=== PATIENT | male | born 1955 | race African-American/Black ===

== ENCOUNTER 2022-12-31 21:39 | Inpatient (IN) | payer OTHER, SELFPAY ==
[2022-12-31] MEDS ORDERED: Dextrose 5% in Water 1,000 ML IV PRN (22:45)
[2022-12-31] MEDS ORDERED: HumaLOG 300 UNITS/3 ML VIAL SC PRN (22:45)
[2022-12-31] MEDS ORDERED: Glucagon 1 MG/ML KIT IM PRN (22:45)
[2022-12-31] MEDS ORDERED: Dextrose 50% Abboject 50 ML SYRINGE SLOW IVP PRN (22:45)
[2022-12-31] MEDS ORDERED: Ondansetron PF 4 MG/2 ML Vial IVP PRN (22:45)
[2022-12-31] MEDS ORDERED: Ondansetron ODT 4 MG TAB PO PRN (22:45)
[2022-12-31] MEDS ORDERED: methylPREDNISolone Sod Succ/PF 125 MG/2 ML VIAL IVP SCH (23:00)
[2022-12-31 23:01] VITALS: BMI 33.7
[2023-01-01 04:24] LABS: #Monocytes 0.1 thou/uL (0.11-0.59); #Neutrophils 10.3 thou/uL (1.40-6.50); %Basophils 0.2 % (0.0-1.0); %Lymphocytes 6.6 % (21.0-51.0); %Monocytes 0.7 % (0.0-10.0); %Neutrophils 92.1 % (42.0-75.0); Hematocrit 37.8 % (42.0-52.0); Hemoglobin 12.4 g/dL (14.0-18.0); Mean Corpuscular HGB CONC 32.8 g/dL (32.0-36.0); Mean Corpuscular Volume 91.5 fl (78.0-98.0); Mean Platelet Volume 10.1 fL (7.4-10.4); Platelet Count 266 10x3/uL (130-400); RBC Distribution Width 12.6 % (11.5-14.5); Red Blood Cell (RBC) Count 4.13 mill/uL (4.70-6.10); White Blood Cell (WBC) Count 11.2 10x3/uL (4.8-10.8)
[2023-01-01 04:34] LABS: Hemoglobin A1c 6.3 % (4.0-6.0)
[2023-01-01 04:57] LABS: ALT (SGPT) 34 U/L (8-55); AST (SGOT) 35 U/L (5-34); Alkaline Phosphatase 59 U/L (40-110); Anion Gap 9 mmol/L (10-20); BUN (Urea Nitrogen) 11 mg/dL (8.4-25.7); Bilirubin, Total 0.3 mg/dL (0.2-1.2); Calc. Creatinine Clearance 92 mL/min (70-130); Calcium 8.9 mg/dL (7.8-10.44); Carbon Dioxide 22 mmol/L (23-31); Chloride 110 mmol/L (98-107); Estimated GFR 68; Globulin 2.9 g/dL (2.4-3.5); Glucose 171 mg/dL (80-115); Potassium 4.2 mmol/L (3.5-5.1); Protein, Total 6.9 g/dL (5.8-8.1); Sodium 137 mmol/L (136-145)
[2023-01-01 05:01] LABS: Phosphorus 1.1 mg/dL (2.3-4.7)
[2023-01-01] MEDS ORDERED: Electrolyte Replacement Protocol 1 EACH FS PRN (05:30)
[2023-01-01] MEDS ORDERED: Magnesium 2 GM/50 ML(in water) 2 GM in Premix Bag 1 BAG IVPB SCH (06:00)
[2023-01-01] MEDS: PHOS-NAK 1 PKT PACK PO SCH ×3 (06:32→16:52)
[2023-01-01] MEDS: HumaLOG 300 UNITS/3 ML VIAL SC PRN (06:38)
[2023-01-01] MEDS ORDERED: Atorvastatin Calcium 10 MG TAB PO SCH (09:00)
[2023-01-01] MEDS: Spironolactone 25 MG TAB PO SCH (09:53)
[2023-01-01] MEDS: Amlodipine 10 MG TAB PO SCH (09:54)
[2023-01-01] MEDS: Losartan 25 MG TAB PO SCH (09:54)
[2023-01-01] MEDS ORDERED: OCTAGAM 10% (10 GM/100 ML VIAL) IVPB SCH ×2 (10:45)
[2023-01-01] MEDS ORDERED: ADMIXTURE FEE IVPB SCH (12:00)
[2023-01-01] MEDS ORDERED: IMMUNE GLOBULIN IVPB SCH (12:00)
[2023-01-01 16:23] LABS: ANA Symphony (Qualitative) Negative (Negative); ANA Symphony (Quantitative) 0.2 Ratio (< 0.7 Negative); dsDNA IgG Antibody Less than 0.6 IU/mL (<10 Negative)
[2023-01-01] MEDS: Privigen 40 GM, Privigen 10 GM in Admixture Fee 1 EACH IVPB SCH (16:53)
[2023-01-01] MEDS: Insulin Glargine 30 UNITS/0.3 ML VIAL SC SCH (20:43)
[2023-01-01] MEDS ORDERED: Insulin Glargine 30 UNITS/0.3 ML VIAL SC SCH (21:00)
[2023-01-02] MEDS: PHOS-NAK 1 PKT PACK PO SCH (03:30)
[2023-01-02 05:02] LABS: #Monocytes 0.8 thou/uL (0.11-0.59); #Neutrophils 12.5 thou/uL (1.40-6.50); %Basophils 0.3 % (0.0-1.0); %Eosinophils 0.2 % (0.0-10.0); %Lymphocytes 9.7 % (21.0-51.0); %Monocytes 5.1 % (0.0-10.0); %Neutrophils 84.2 % (42.0-75.0); Hemoglobin 11.4 g/dL (14.0-18.0); Mean Corpuscular HGB CONC 33.5 g/dL (32.0-36.0); Mean Corpuscular Hemoglobin 30.4 pg (27.0-31.0); Mean Corpuscular Volume 90.7 fl (78.0-98.0); Mean Platelet Volume 10.2 fL (7.4-10.4); Platelet Count 227 10x3/uL (130-400); RBC Distribution Width 12.7 % (11.5-14.5); Red Blood Cell (RBC) Count 3.75 mill/uL (4.70-6.10); White Blood Cell (WBC) Count 14.9 10x3/uL (4.8-10.8)
[2023-01-02 06:52] LABS: Anion Gap 10 mmol/L (10-20); BUN (Urea Nitrogen) 16 mg/dL (8.4-25.7); Calc. Creatinine Clearance 92 mL/min (70-130); Calcium 8.3 mg/dL (7.8-10.44); Carbon Dioxide 23 mmol/L (23-31); Chloride 105 mmol/L (98-107); Estimated GFR 68; Glucose 92 mg/dL (80-115); Phosphorus 3.3 mg/dL (2.3-4.7); Sodium 134 mmol/L (136-145)
[2023-01-02] MEDS ORDERED: Magnesium 2 GM/50 ML(in water) 2 GM in Premix Bag 1 BAG IVPB SCH (08:00)
[2023-01-02] MEDS ORDERED: Dexamethasone 4 mg/ml Vial SLOW IVP SCH (09:15)
[2023-01-02] MEDS: Amlodipine 10 MG TAB PO SCH (09:58)
[2023-01-02] MEDS: Losartan 25 MG TAB PO SCH (09:58)
[2023-01-02] MEDS: Spironolactone 25 MG TAB PO SCH (09:58)
[2023-01-02] MEDS: Privigen 40 GM, Privigen 10 GM in Admixture Fee 1 EACH IVPB SCH (14:06)
[2023-01-02] MEDS: Dexamethasone 4 mg/ml Vial SLOW IVP SCH ×2 (16:07→21:05)
[2023-01-02] MEDS: Insulin Glargine 30 UNITS/0.3 ML VIAL SC SCH (21:05)
[2023-01-03] MEDS: Dexamethasone 4 mg/ml Vial SLOW IVP SCH ×4 (03:34→21:15)
[2023-01-03 04:36] LABS: #Monocytes 0.2 thou/uL (0.11-0.59); %Lymphocytes 6.9 % (21.0-51.0); %Monocytes 1.4 % (0.0-10.0); Hematocrit 37.7 % (42.0-52.0); Hemoglobin 12.6 g/dL (14.0-18.0); Mean Corpuscular HGB CONC 33.4 g/dL (32.0-36.0); Mean Corpuscular Hemoglobin 30.3 pg (27.0-31.0); Mean Corpuscular Volume 90.6 fl (78.0-98.0); Mean Platelet Volume 9.9 fL (7.4-10.4); Platelet Count 252 10x3/uL (130-400); RBC Distribution Width 12.5 % (11.5-14.5); Red Blood Cell (RBC) Count 4.16 mill/uL (4.70-6.10); White Blood Cell (WBC) Count 12.1 10x3/uL (4.8-10.8)
[2023-01-03 04:57] LABS: Anion Gap 13 mmol/L (10-20); BUN (Urea Nitrogen) 19 mg/dL (8.4-25.7); Calc. Creatinine Clearance 97 mL/min (70-130); Calcium 8.5 mg/dL (7.8-10.44); Carbon Dioxide 21 mmol/L (23-31); Chloride 105 mmol/L (98-107); Estimated GFR 73; Glucose 136 mg/dL (80-115); Potassium 4.1 mmol/L (3.5-5.1); Sodium 135 mmol/L (136-145)
[2023-01-03] MEDS: Spironolactone 25 MG TAB PO SCH (08:27)
[2023-01-03] MEDS: Amlodipine 10 MG TAB PO SCH (08:27)
[2023-01-03] MEDS: Losartan 25 MG TAB PO SCH (08:28)
[2023-01-03] MEDS: HumaLOG 300 UNITS/3 ML VIAL SC PRN ×2 (14:18→18:32)
[2023-01-03] MEDS: Privigen 40 GM, Privigen 10 GM in Admixture Fee 1 EACH IVPB SCH (15:34)
[2023-01-03] MEDS: Insulin Glargine 30 UNITS/0.3 ML VIAL SC SCH (21:15)
[2023-01-04] MEDS: Dexamethasone 4 mg/ml Vial SLOW IVP SCH ×4 (02:29→20:45)
[2023-01-04 05:48] LABS: #Monocytes 0.4 thou/uL (0.11-0.59); #Neutrophils 15.5 thou/uL (1.40-6.50); %Basophils 0.1 % (0.0-1.0); %Monocytes 2.5 % (0.0-10.0); %Neutrophils 90.5 % (42.0-75.0); Hemoglobin 12.4 g/dL (14.0-18.0); Mean Corpuscular HGB CONC 33.5 g/dL (32.0-36.0); Mean Corpuscular Hemoglobin 29.8 pg (27.0-31.0); Mean Corpuscular Volume 88.9 fl (78.0-98.0); Mean Platelet Volume 10.2 fL (7.4-10.4); Platelet Count 265 10x3/uL (130-400); RBC Distribution Width 12.3 % (11.5-14.5); Red Blood Cell (RBC) Count 4.16 mill/uL (4.70-6.10); White Blood Cell (WBC) Count 17.1 10x3/uL (4.8-10.8)
[2023-01-04 06:16] LABS: Anion Gap 11 mmol/L (10-20); BUN (Urea Nitrogen) 25 mg/dL (8.4-25.7); Calc. Creatinine Clearance 94 mL/min (70-130); Calcium 8.3 mg/dL (7.8-10.44); Carbon Dioxide 21 mmol/L (23-31); Chloride 104 mmol/L (98-107); Estimated GFR 70; Glucose 146 mg/dL (80-115); Potassium 4.1 mmol/L (3.5-5.1); Sodium 132 mmol/L (136-145)
[2023-01-04] MEDS: Spironolactone 25 MG TAB PO SCH (09:19)
[2023-01-04] MEDS: Losartan 25 MG TAB PO SCH (09:19)
[2023-01-04] MEDS: Amlodipine 10 MG TAB PO SCH (09:19)
[2023-01-04] MEDS: Privigen 40 GM, Privigen 10 GM in Admixture Fee 1 EACH IVPB SCH (14:01)
[2023-01-04 14:37] LABS: Cytoplasmic (C-ANCA) <1:20 titer (Neg:<1:20); Perinuclear (P-ANCA) <1:20 titer (Neg:<1:20)
[2023-01-04] MEDS ORDERED: CEFAZOLIN 2 GM in Sodium Chloride 0.9% 100 ML IVPB SCH (18:15)
[2023-01-04] MEDS: Insulin Glargine 30 UNITS/0.3 ML VIAL SC SCH (20:45)
[2023-01-05] MEDS: Dexamethasone 4 mg/ml Vial SLOW IVP SCH ×4 (03:40→20:06)
[2023-01-05 05:19] LABS: #Monocytes 0.8 thou/uL (0.11-0.59); #Neutrophils 15.3 thou/uL (1.40-6.50); %Basophils 0.1 % (0.0-1.0); %Monocytes 4.8 % (0.0-10.0); %Neutrophils 87.7 % (42.0-75.0); Hematocrit 36.5 % (42.0-52.0); Hemoglobin 12.5 g/dL (14.0-18.0); Mean Corpuscular HGB CONC 34.2 g/dL (32.0-36.0); Mean Corpuscular Hemoglobin 30.8 pg (27.0-31.0); Mean Corpuscular Volume 89.9 fl (78.0-98.0); Mean Platelet Volume 9.8 fL (7.4-10.4); Platelet Count 260 10x3/uL (130-400); RBC Distribution Width 12.5 % (11.5-14.5); Red Blood Cell (RBC) Count 4.06 mill/uL (4.70-6.10); White Blood Cell (WBC) Count 17.4 10x3/uL (4.8-10.8)
[2023-01-05 05:48] LABS: Anion Gap 12 mmol/L (10-20); BUN (Urea Nitrogen) 28 mg/dL (8.4-25.7); Calc. Creatinine Clearance 92 mL/min (70-130); Calcium 8.1 mg/dL (7.8-10.44); Carbon Dioxide 20 mmol/L (23-31); Chloride 105 mmol/L (98-107); Estimated GFR 68; Glucose 175 mg/dL (80-115); Potassium 4.4 mmol/L (3.5-5.1); Sodium 133 mmol/L (136-145)
[2023-01-05] MEDS: Spironolactone 25 MG TAB PO SCH (07:33)
[2023-01-05] MEDS: Amlodipine 10 MG TAB PO SCH (07:33)
[2023-01-05] MEDS: Losartan 25 MG TAB PO SCH (07:39)
[2023-01-05] MEDS: tiZANidine HCl 4 MG TAB PO SCH ×2 (09:17→20:05)
[2023-01-05] MEDS ORDERED: CEFAZOLIN 2 GM VIAL ONE (10:56)
[2023-01-05] MEDS ORDERED: Sodium Chloride 0.9% 100 ML ONE (10:57)
[2023-01-05] MEDS ORDERED: Fentanyl 250 MCG/5 ML VIAL ONE (12:37)
[2023-01-05] MEDS ORDERED: EPINEPHrine 1 MG/ML AMP ONE (12:53)
[2023-01-05] MEDS ORDERED: Bupivacaine HCl 0.5%/Epinephrine 1:200,000/PF 30 ml Vial ONE (12:53)
[2023-01-05] MEDS ORDERED: Lidocaine 1% (PF) 30 ML VIAL ONE (12:53)
[2023-01-05] MEDS ORDERED: PROPOFOL 200 MG/20 ML VIAL ONE (13:12)
[2023-01-05] MEDS ORDERED: Ondansetron PF 4 MG/2 ML Vial ONE (13:12)
[2023-01-05] MEDS ORDERED: Lidocaine 1% PF 5 ML VIAL ONE (13:12)
[2023-01-05] MEDS ORDERED: Dexamethasone 20 MG/5 ML VIAL ONE (13:12)
[2023-01-05] MEDS ORDERED: Promethazine HCl 25 MG/ML VIAL IM PRN (14:57)
[2023-01-05] MEDS ORDERED: HYDROmorphone 2 MG/ML VIAL SLOW IVP PRN (14:57)
[2023-01-05] MEDS ORDERED: Ondansetron HCl/PF 4 MG/2 ML Vial IVP PRN (14:57)
[2023-01-05] MEDS: CEFAZOLIN 2 GM in Sodium Chloride 0.9% 100 ML IVPB SCH (18:15)
[2023-01-05] MEDS: Acetaminophen 325 MG TAB PO PRN (20:05)
[2023-01-05] MEDS: Insulin Glargine 30 UNITS/0.3 ML VIAL SC SCH (22:12)
[2023-01-06] MEDS: CEFAZOLIN 2 GM in Sodium Chloride 0.9% 100 ML IVPB SCH (02:37)
[2023-01-06] MEDS ORDERED: HYDROcodone/Acetaminophen 10/325 mg Tablet PO PRN (06:57)
[2023-01-06] MEDS ORDERED: Fentanyl 100 MCG/2 ML VIAL SLOW IVP PRN (06:59)
[2023-01-06] MEDS ORDERED: fentaNYL 50 mcg/mL 1 mL Vial SLOW IVP PRN (07:06)
[2023-01-06] MEDS: tiZANidine HCl 4 MG TAB PO SCH ×2 (07:56→21:40)
[2023-01-06] MEDS: Amlodipine 10 MG TAB PO SCH (07:56)
[2023-01-06] MEDS: Losartan 25 MG TAB PO SCH (07:56)
[2023-01-06] MEDS: Spironolactone 25 MG TAB PO SCH (07:56)
[2023-01-06] MEDS: Dexamethasone 4 mg/ml Vial SLOW IVP SCH ×2 (07:57→21:42)
[2023-01-06] MEDS: Acetaminophen 325 MG TAB PO PRN ×2 (10:44→18:05)
[2023-01-06] MEDS: HumaLOG 300 UNITS/3 ML VIAL SC PRN (13:40)
[2023-01-06] MEDS: Insulin Glargine 30 UNITS/0.3 ML VIAL SC SCH (21:45)
[2023-01-07] MEDS: HumaLOG 300 UNITS/3 ML VIAL SC PRN ×2 (06:18→13:12)
[2023-01-07] MEDS: Amlodipine 10 MG TAB PO SCH (07:44)
[2023-01-07] MEDS: Dexamethasone 4 mg/ml Vial SLOW IVP SCH ×2 (07:44→20:32)
[2023-01-07] MEDS: tiZANidine HCl 4 MG TAB PO SCH ×2 (07:44→20:32)
[2023-01-07] MEDS: Spironolactone 25 MG TAB PO SCH (07:44)
[2023-01-07] MEDS: Losartan 25 MG TAB PO SCH (07:44)
[2023-01-07 11:27] LABS: #Monocytes 0.9 thou/uL (0.11-0.59); #Neutrophils 14.8 thou/uL (1.40-6.50); %Basophils 0.1 % (0.0-1.0); %Lymphocytes 5.6 % (21.0-51.0); %Monocytes 5.3 % (0.0-10.0); %Neutrophils 87.9 % (42.0-75.0); Hematocrit 37.8 % (42.0-52.0); Mean Corpuscular HGB CONC 34.4 g/dL (32.0-36.0); Mean Platelet Volume 9.8 fL (7.4-10.4); Platelet Count 216 10x3/uL (130-400); RBC Distribution Width 12.3 % (11.5-14.5); White Blood Cell (WBC) Count 16.9 10x3/uL (4.8-10.8)
[2023-01-07 11:53] LABS: ALT (SGPT) 23 U/L (8-55); AST (SGOT) 19 U/L (5-34); Alkaline Phosphatase 51 U/L (40-110); Anion Gap 11 mmol/L (10-20); BUN (Urea Nitrogen) 24 mg/dL (8.4-25.7); Bilirubin, Total 0.3 mg/dL (0.2-1.2); Calc. Creatinine Clearance 88 mL/min (70-130); Calcium 7.8 mg/dL (7.8-10.44); Carbon Dioxide 21 mmol/L (23-31); Chloride 103 mmol/L (98-107); Estimated GFR 64; Glucose 241 mg/dL (80-115); Magnesium 2.2 mg/dL (1.6-2.6); Phosphorus 2.6 mg/dL (2.3-4.7); Potassium 4.3 mmol/L (3.5-5.1); Sodium 131 mmol/L (136-145)
[2023-01-07] MEDS: Insulin Glargine 30 UNITS/0.3 ML VIAL SC SCH (20:34)
[2023-01-08] MEDS: Amlodipine 10 MG TAB PO SCH (07:50)
[2023-01-08] MEDS: Losartan 25 MG TAB PO SCH (07:51)
[2023-01-08] MEDS: Dexamethasone 4 mg/ml Vial SLOW IVP SCH (07:51)
[2023-01-08] MEDS: Spironolactone 25 MG TAB PO SCH (07:51)
[2023-01-08] MEDS: tiZANidine HCl 4 MG TAB PO SCH (07:51)
[2023-01-08] MEDS ORDERED: tiZANidine HCl 4 MG TAB PO PRN (12:00)
[2023-01-08] MEDS: Insulin Glargine 30 UNITS/0.3 ML VIAL SC SCH (20:24)
[2023-01-08] MEDS: Acetaminophen 325 MG TAB PO PRN (20:24)
[2023-01-09] MEDS: Amlodipine 10 MG TAB PO SCH (08:33)
[2023-01-09] MEDS: Losartan 25 MG TAB PO SCH (08:34)
[2023-01-09] MEDS: Dexamethasone 4 MG TAB PO SCH (08:34)
[2023-01-09] MEDS: Spironolactone 25 MG TAB PO SCH (08:34)
[2023-01-09] MEDS: Acetaminophen 325 MG TAB PO PRN ×2 (08:38→20:41)
[2023-01-09] MEDS: HumaLOG 300 UNITS/3 ML VIAL SC PRN (17:47)
[2023-01-09] MEDS: Insulin Glargine 30 UNITS/0.3 ML VIAL SC SCH (20:33)
[2023-01-10] MEDS: Dexamethasone 4 MG TAB PO SCH (08:12)
[2023-01-10] MEDS: Losartan 25 MG TAB PO SCH (08:12)
[2023-01-10] MEDS: Acetaminophen 325 MG TAB PO PRN ×2 (08:12→17:19)
[2023-01-10] MEDS: Spironolactone 25 MG TAB PO SCH (08:12)
[2023-01-10] MEDS: Amlodipine 10 MG TAB PO SCH (08:13)
[2023-01-10 10:10] LABS: #Eosinphils 0.1 thou/uL (0.0-0.7); #Monocytes 0.9 thou/uL (0.11-0.59); #Neutrophils 12.7 thou/uL (1.40-6.50); %Basophils 0.2 % (0.0-1.0); %Eosinophils 0.6 % (0.0-10.0); %Lymphocytes 17.6 % (21.0-51.0); %Monocytes 5.5 % (0.0-10.0); %Neutrophils 74.7 % (42.0-75.0); Hematocrit 40.8 % (42.0-52.0); Hemoglobin 13.7 g/dL (14.0-18.0); Mean Corpuscular HGB CONC 33.6 g/dL (32.0-36.0); Mean Corpuscular Hemoglobin 30.6 pg (27.0-31.0); Mean Corpuscular Volume 91.3 fl (78.0-98.0); Mean Platelet Volume 9.7 fL (7.4-10.4); Platelet Count 230 10x3/uL (130-400); RBC Distribution Width 12.7 % (11.5-14.5); Red Blood Cell (RBC) Count 4.47 mill/uL (4.70-6.10)
[2023-01-10 10:39] LABS: Anion Gap 12 mmol/L (10-20); BUN (Urea Nitrogen) 18 mg/dL (8.4-25.7); Calc. Creatinine Clearance 110 mL/min (70-130); Calcium 8.3 mg/dL (7.8-10.44); Carbon Dioxide 20 mmol/L (23-31); Chloride 105 mmol/L (98-107); Estimated GFR 85; Glucose 141 mg/dL (80-115); Potassium 4.1 mmol/L (3.5-5.1); Sodium 133 mmol/L (136-145)
[2023-01-10] MEDS: HumaLOG 300 UNITS/3 ML VIAL SC PRN (17:20)
[2023-01-10 19:33] VITALS: BP 158/86; TEMP 97.6
== END 2023-01-10 21:35 | DRG 501 ==
LOC: 2SE 22:17 → OBSVTOIN 01-02 11:53 → T4-A 01-05 18:45
PROVIDERS: ADMIT Student in an Organized Health Care Education/Training Program; ATTEND Emergency Medicine
PROC: 0LQQ0ZZ Repair Right Knee Tendon, Open Approach (ICD-10-PCS; principal; 2023-01-05)
PROC: 3E033XZ Introduction of Vasopressor into Peripheral Vein, Percutaneous Approach (ICD-10-PCS; 2023-01-05)
DX: S86.811A Strain of other muscle(s) and tendon(s) at lower leg level, right leg, initial encounter (principal); E87.1 Hypo-osmolality and hyponatremia; M51.06 Intervertebral disc disorders with myelopathy, lumbar region; G82.21 Paraplegia, complete; M48.04 Spinal stenosis, thoracic region; M48.061 Spinal stenosis, lumbar region without neurogenic claudication; E66.9 Obesity, unspecified; E11.69 Type 2 diabetes mellitus with other specified complication; I10 Essential (primary) hypertension; E78.5 Hyperlipidemia, unspecified; R20.2 Paresthesia of skin; M25.561 Pain in right knee; M25.461 Effusion, right knee; G47.33 Obstructive sleep apnea (adult) (pediatric); T73.3XXA Exhaustion due to excessive exertion, initial encounter; D72.829 Elevated white blood cell count, unspecified; Z79.899 Other long term (current) drug therapy; Z83.3 Family history of diabetes mellitus; Z79.4 Long term (current) use of insulin; Z68.33 Body mass index [BMI] 33.0-33.9, adult
CPT/HCPCS: 36415; 36416; 70551; 72141; 72146; 72148; 80048; 80053; 82085; 82550; 83036; 83735; 84100; 85025; 85652; 86037; 86038; 86141; 86225; 93970; 96374; 96375; 96376; C1713; G0378; J0171; J1100; J1459; J1650; J1815; J2001; J2405; J2704; J2930; J3010; J3475; J3490; J8540; L1830

== ENCOUNTER 2023-05-04 12:50 | Outpatient (CLI) | payer OTHER | END 2023-05-04 12:51 | disposition home or self-care (01) | LOC: CT 12:50 | PROVIDERS: ATTEND Internal Medicine Cardiovascular Disease | DX: R06.02 Shortness of breath (principal); E27.8 Other specified disorders of adrenal gland; N28.9 Disorder of kidney and ureter, unspecified | CPT/HCPCS: 71275 ==